=== PATIENT | male | born 1985 | race Caucasian/White ===

== ENCOUNTER 2023-11-19 13:24 | Outpatient (CLI) | payer OTHER ==
--- NOTE | 2023-11-19 16:05 | XRAY Report ---
PROCEDURE: Foot 1-2V LT INDICATIONS: SKIN MASS OF TOE TECHNIQUE: 3 views of the foot were acquired. COMPARISON: None. FINDINGS: Bones: No fractures or dislocations. No suspicious bony lesions. Soft tissues: No tibiotalar joint effusion. Achilles tendon appears normal. IMPRESSION: No acute bony abnormality. No great toe osseous lesions are seen. Osseous prominence seen on lateral view at the dorsal TMT joints, recommend clinical correlation. Reviewed by: Marvin Sandoval MD on 11/19/2023 4:04 PM PDT Approved by: Marvin Sandoval MD on 11/19/2023 4:04 PM PDT Station ID: [id number]
[2023-11-19 18:04] LABS: BASOPHILS # (AUTO) 0.1 10^3/uL (0.0-0.1); BASOPHILS % (AUTO) 1.4 %; EOSINOPHILS # (AUTO) 0.4 10^3/uL (0.0-0.7); EOSINOPHILS % (AUTO) 5.1 %; HCT - HEMATOCRIT 47.2 % (42.0-52.0); LYMPHOCYTES # (AUTO) 2.1 10^3/uL (1.5-3.5); LYMPHOCYTES % (AUTO) 27.3 %; MEAN CORPUSCULAR HEMOGLOBIN 31.5 pg (27.0-31.0); MEAN CORPUSCULAR HGB CONC 33.9 g/dL (32.0-36.0); MEAN CORPUSCULAR VOLUME 92.9 fL (80.0-94.0); MEAN PLATELET VOLUME 11.2 fL (7.4-11.4); MONOCYTES # (AUTO) 0.7 10^3/uL (0.0-1.0); MONOCYTES % (AUTO) 8.8 %; NEUTROPHILS # (AUTO) 4.5 10^3/uL (1.5-6.6); PLT - PLATELET COUNT 263 10^3/uL (130-450); RED BLOOD COUNT 5.08 10^6/uL (4.70-6.10); RED CELL DISTRIBUTION WIDTH 12.5 % (12.0-15.0); WHITE BLOOD COUNT 7.8 x10^3/uL (4.8-10.8)
[2023-11-19 18:25] LABS: % IRON SATURATION 31 % (20-50); ALBUMIN 4.6 g/dL (3.2-5.5); ALBUMIN/GLOBULIN RATIO 1.4 (1.0-2.2); ALKALINE PHOSPHATASE 85 IU/L (42-121); ALT ALANINE AMINOTRANSFERASE 33 IU/L (10-60); AST ASPARTATE AMINOTRANSFERASE 29 IU/L (10-42); BILIRUBIN,TOTAL 0.5 mg/dL (0.2-1.0); BUN - BLOOD UREA NITROGEN 14 mg/dL (6-20); CALCIUM 9.9 mg/dL (8.5-10.3); CARBON DIOXIDE - CO2 27 mmol/L (21-32); CHLORIDE 104 mmol/L (101-111); CHOLESTEROL 197 mg/dL; CREATININE 0.7 mg/dL (0.6-1.3); GFR - MDRD 128 (>89); GLUCOSE 101 mg/dL (74-104); HDL CHOLESTEROL 65 mg/dL; IRON 99 ug/dL (50-212); LDL CHOLESTEROL,CALCULATED 108 mg/dL; LDL/HDL RATIO 1.7 (<3.6); POTASSIUM 4.4 mmol/L (3.5-4.5); SODIUM 137 mmol/L (135-145); TOTAL IRON BINDING CAPACITY 316 ug/dL (250-450); TOTAL PROTEIN 7.8 g/dL (6.4-8.9); TRANSFERRIN 226 mg/dL (203-362); TRIGLYCERIDES 120 mg/dL; VLDL CHOLESTEROL 24 mg/dL
[2023-11-19 18:37] LABS: THYROID STIMULATING HORMONE 1.74 uIU/mL (0.34-5.60)
[2023-11-19 18:40] LABS: FERRITIN 203.6 ng/mL (23.9-336.2)
[2023-11-19 20:37] LABS: ESTIMATED AVERAGE GLUCOSE 131 mg/dL (70-100); HEMOGLOBIN A1c% 6.2 % (4.27-6.07)
== END 2023-11-19 13:25 | disposition home or self-care (01) ==
LOC: DI.N 13:24
DX: R22.42 Localized swelling, mass and lump, left lower limb (principal); I10 Essential (primary) hypertension; R53.83 Other fatigue; Z00.00 Encounter for general adult medical examination without abnormal findings; R68.82 Decreased libido
CPT/HCPCS: 36415; 80053; 80061; 82306; 82728; 83036; 83540; 83721; 84403; 84443; 84466; 85025